=== PATIENT | female | born 2000 | race Caucasian/White ===

== ENCOUNTER 2022-02-11 00:06 | Emergency (ER) | payer OTHER ==
--- NOTE | 2022-02-11 00:30 | NUR ---
CALLED FOR [facility] NOT IN WAITING ROOM.
--- NOTE | 2022-02-11 01:06 | NUR ---
CALLED FOR TRIAGE NOT IN WAITING ROOM.
--- NOTE | 2022-02-11 01:06 | NUR ---
PT LEFT WITHOUT BEING SEEN.
== END 2022-02-11 01:07 | disposition left against medical advice (07) ==
LOC: EDBD 00:14 → ER 00:14
DX: Z53.21 Procedure and treatment not carried out due to patient leaving prior to being seen by health care provider (principal)